=== PATIENT | male | born 1970 | race Caucasian/White ===

== ENCOUNTER 2017-09-01 17:17 | Emergency (ER) | payer MEDICARE, MEDICAID ==
[~2017-09-01] VITALS: Ht 188 cm; Wt 86.4 kg
[~2017-09-01 17:17] MED LIST: ACET-1008 PO; ASPI-611 PO; ATOR40TA PO; DEC1T PO; DOCU100C41 PO; ESCI5TAB PO; LEVE750T6 PO; LEVO300T27 PO; LORA-512 PO; MELA10TA2 PO; MULT-1179 PO; OMEP-84 PO; PROM50TA3 PO; SOMA5PEN2 SQ; TEG100T PO
[2017-09-01] MEDS ORDERED: normal saline 1000ML IV soln IVB ONE ×2 (21:20→21:30)
[2017-09-01 21:51] LABS: BASOPHILS % (AUTO) 0.3 % (0-1); EOSINOPHILS # (AUTO) 0.1 X10'3 (0-0.9); EOSINOPHILS % (AUTO) 2.5 % (0-6); HEMATOCRIT 39.2 % (42.0-52.0); HEMOGLOBIN 13.5 g/dl (14.0-17.9); LYMPHOCYTES # (AUTO) 1.8 X10'3 (1.1-4.8); LYMPHOCYTES % (AUTO) 37.5 % (21-51); MEAN CORPUSCULAR HEMOGLOBIN 29.8 PG (27.0-31.0); MEAN CORPUSCULAR HGB CONC 34.4 % (33.0-36.5); MEAN CORPUSCULAR VOLUME 86.9 FL (78-98); MEAN PLATELET VOLUME 7.9 FL (7.4-10.4); MONOCYTES # (AUTO) 0.5 X10'3 (0-0.9); MONOCYTES % (AUTO) 11.1 % (2-12); NEUTROPHILS # (AUTO) 2.3 X10'3 (1.8-7.7); NEUTROPHILS % (AUTO) 48.6 % (42-75); PLATELET COUNT 183 X10'3 (140-440); RED BLOOD COUNT 4.52 X10'6 (4.70-6.10); RED CELL DISTRIBUTION WIDTH 13.2 % (11.5-14.5); WHITE BLOOD COUNT 4.8 X10'3 (4.5-11.0)
[2017-09-01 22:16] LABS: ALANINE AMINOTRANSFERASE 45 U/L (12-78); ALBUMIN 3.9 G/DL (3.4-5.0); ALBUMIN/GLOBULIN RATIO 1.4 (1.1-1.5); ALKALINE PHOSPHATASE 179 IU/L (46-116); ANION GAP 7 (8-16); ASPARTATE AMINO TRANSFERASE 25 U/L (10-37); BILIRUBIN,TOTAL 0.4 MG/DL (0.1-1.0); BLOOD UREA NITROGEN 11 MG/DL (7-18); BUN/CREATININE RATIO 15.7 (5.4-32.0); CALCIUM 8.6 MG/DL (8.5-10.1); CHLORIDE 97 MMOL/L (99-107); GLUCOSE 84 MG/DL (70-104); MAGNESIUM 1.7 MG/DL (1.5-2.4); POTASSIUM 4.3 MMOL/L (3.5-5.1); SODIUM 134 MMOL/L (135-145); TOTAL CARBON DIOXIDE 30.2 MMOL/L (24-32); TOTAL PROTEIN 6.7 G/DL (6.4-8.2); eGFR > 90 ML/MIN
[2017-09-01 22:18] LABS: CLARITY,URINE CLEAR (Clear); GLUCOSE, URINE NEGATIVE (Neg); KETONES,URINE >=80 mg/dl (Neg); LEUKOCYTE ESTERASE ,URINE NEGATIVE (Neg); NITRITES, URINE NEGATIVE (Neg); OCCULT BLOOD,URINE NEGATIVE (Neg); PH,URINE 5.5 (4.8-8.0); PROTEIN,URINE NEGATIVE (Neg); UROBILINOGEN,URINE 0.2 E.U/dL (0.2-1.0)
[2017-09-01 22:20] LABS: COLOR,URINE DARK YELLOW (Yellow); UA COLLECTION TYPE CLN CATCH MIDSTREAM
[2017-09-02 00:50] VITALS: BP 142/73
== END 2017-09-02 00:10 | disposition home or self-care (01) ==
LOC: ER 17:18
DX: R53.1 Weakness (principal); E03.9 Hypothyroidism, unspecified; E78.00 Pure hypercholesterolemia, unspecified; I10 Essential (primary) hypertension; Z88.8 Allergy status to other drugs, medicaments and biological substances; Z79.82 Long term (current) use of aspirin
CPT/HCPCS: 36415; 80053; 81003; 83735; 84439; 84443; 85025; 99284; J7030

== ENCOUNTER 2017-09-08 19:03 | Emergency (ER) | payer MEDICARE, MEDICAID ==
[~2017-09-08] VITALS: Ht 188 cm; Wt 86.4 kg
[2017-09-08] MEDS ORDERED: normal saline 1000ml 1,000 ML IV ONE (19:44)
[2017-09-08 20:18] LABS: BASOPHILS % (AUTO) 0.6 % (0-1); EOSINOPHILS # (AUTO) 0.1 X10'3 (0-0.9); EOSINOPHILS % (AUTO) 2.7 % (0-6); HEMOGLOBIN 12.6 g/dl (14.0-17.9); MEAN CORPUSCULAR HEMOGLOBIN 30.5 PG (27.0-31.0); MEAN CORPUSCULAR HGB CONC 35.2 % (33.0-36.5); MEAN CORPUSCULAR VOLUME 86.6 FL (78-98); MONOCYTES # (AUTO) 0.4 X10'3 (0-0.9); MONOCYTES % (AUTO) 8.7 % (2-12); NEUTROPHILS # (AUTO) 1.7 X10'3 (1.8-7.7); PLATELET COUNT 209 X10'3 (140-440); RED BLOOD COUNT 4.15 X10'6 (4.70-6.10); WHITE BLOOD COUNT 4.3 X10'3 (4.5-11.0)
[2017-09-08 20:30] LABS: PARTIAL THROMBOPLASTIN TIME 29 SECONDS (22-32); PROTHROMBIN TIME 10.4 SECONDS (9.0-12.0)
[2017-09-08 20:45] LABS: ALANINE AMINOTRANSFERASE 44 U/L (12-78); ALBUMIN 3.6 G/DL (3.4-5.0); ALBUMIN/GLOBULIN RATIO 1.3 (1.1-1.5); ALKALINE PHOSPHATASE 141 IU/L (46-116); ANION GAP 3 (8-16); ASPARTATE AMINO TRANSFERASE 22 U/L (10-37); BILIRUBIN,TOTAL 0.2 MG/DL (0.1-1.0); BLOOD UREA NITROGEN 11 MG/DL (7-18); BUN/CREATININE RATIO 15.7 (5.4-32.0); CALCIUM 8.3 MG/DL (8.5-10.1); CHLORIDE 99 MMOL/L (99-107); CREATINE KINASE 165 U/L (39-308); ETHANOL < 0.010 GM/DL (0.0-0.010); GLUCOSE 103 MG/DL (70-104); MAGNESIUM 1.6 MG/DL (1.5-2.4); POTASSIUM 3.9 MMOL/L (3.5-5.1); SODIUM 133 MMOL/L (135-145); TOTAL CARBON DIOXIDE 30.7 MMOL/L (24-32); TOTAL PROTEIN 6.4 G/DL (6.4-8.2); eGFR > 90 ML/MIN
[2017-09-08] MEDS ORDERED: levetiracetam inj 1,500 MG in normal saline 100ml IV soln 85 ML IV ONE (20:58)
[2017-09-08] MEDS ORDERED: LORazepam 2 mg/ml vial IV ONE (22:30)
[2017-09-08 22:40] LABS: CLARITY,URINE Clear (Clear); COLOR,URINE Yellow (Yellow); GLUCOSE, URINE Negative (Neg); KETONES,URINE Negative (Neg); LEUKOCYTE ESTERASE ,URINE Negative (Neg); NITRITES, URINE Negative (Neg); OCCULT BLOOD,URINE Negative (Neg); PH,URINE 6.5 (4.8-8.0); PROTEIN,URINE Negative (Neg)
[2017-09-08 22:46] LABS: UA COLLECTION TYPE CLN CATCH MIDSTREAM
[2017-09-08 22:54] LABS: URINE AMPHETAMINE SCREEN NEGATIVE (Neg); URINE BARBITUATE SCREEN NEGATIVE (Neg); URINE BENZODIAZEPINES SCREEN NEGATIVE (Neg); URINE CANNABINOID SCREEN NEGATIVE (Neg); URINE COCAINE SCREEN NEGATIVE (Neg); URINE METHADONE SCREEN NEGATIVE (Neg); URINE OPIATE SCREEN NEGATIVE (Neg); URINE PHENCYCLIDINE SCREEN NEGATIVE (Neg)
[2017-09-08] MEDS ORDERED: LORA0.5T PO (22:55)
[2017-09-08 23:12] VITALS: BP 136/82
[2017-09-09] MEDS ORDERED: levetiracetam inj 1,500 MG in normal saline 100ml IV soln 85 ML IV SCH (08:00)
== END 2017-09-08 23:14 | disposition home or self-care (01) ==
LOC: ER 19:03
DX: R56.9 Unspecified convulsions (principal); I10 Essential (primary) hypertension; E78.00 Pure hypercholesterolemia, unspecified; E03.9 Hypothyroidism, unspecified; I25.10 Atherosclerotic heart disease of native coronary artery without angina pectoris; Z98.890 Other specified postprocedural states; Z79.82 Long term (current) use of aspirin
CPT/HCPCS: 36415; 70250; 71045; 74018; 80053; 80305; 80320; 81003; 82550; 83735; 83874; 85025; 85610; 85730; 96361; 96374; 96375; 99285; J1953; J2060; J7030

== ENCOUNTER 2017-09-09 11:31 | Emergency (ER) | payer MEDICARE, MEDICAID ==
[~2017-09-09] VITALS: Ht 188 cm; Wt 190.0 kg
[~2017-09-09 11:31] MED LIST changes: +LORA0.5T PO
[2017-09-09] MEDS ORDERED: normal saline 1000ML IV soln IVB ONE (11:50)
[2017-09-09] MEDS ORDERED: LORazepam 2 mg/ml vial IV ONE ×3 (11:50→17:45)
[2017-09-09 12:18] LABS: BASOPHILS % (AUTO) 0.4 % (0-1); EOSINOPHILS # (AUTO) 0.1 X10'3 (0-0.9); EOSINOPHILS % (AUTO) 2.7 % (0-6); HEMATOCRIT 35.6 % (42.0-52.0); HEMOGLOBIN 12.8 g/dl (14.0-17.9); LYMPHOCYTES # (AUTO) 1.8 X10'3 (1.1-4.8); LYMPHOCYTES % (AUTO) 44.3 % (21-51); MEAN CORPUSCULAR HGB CONC 35.9 % (33.0-36.5); MEAN CORPUSCULAR VOLUME 86.2 FL (78-98); MEAN PLATELET VOLUME 7.7 FL (7.4-10.4); MONOCYTES # (AUTO) 0.3 X10'3 (0-0.9); MONOCYTES % (AUTO) 7.9 % (2-12); NEUTROPHILS # (AUTO) 1.8 X10'3 (1.8-7.7); NEUTROPHILS % (AUTO) 44.7 % (42-75); PLATELET COUNT 210 X10'3 (140-440); RED BLOOD COUNT 4.13 X10'6 (4.70-6.10); RED CELL DISTRIBUTION WIDTH 12.6 % (11.5-14.5)
[2017-09-09 12:33] LABS: ALANINE AMINOTRANSFERASE 39 U/L (12-78); ALBUMIN 3.6 G/DL (3.4-5.0); ALBUMIN/GLOBULIN RATIO 1.3 (1.1-1.5); ALKALINE PHOSPHATASE 140 IU/L (46-116); ANION GAP 4 (8-16); ASPARTATE AMINO TRANSFERASE 22 U/L (10-37); BILIRUBIN,TOTAL 0.3 MG/DL (0.1-1.0); BLOOD UREA NITROGEN 9 MG/DL (7-18); CALCIUM 8.6 MG/DL (8.5-10.1); CHLORIDE 97 MMOL/L (99-107); CREATINE KINASE 163 U/L (39-308); GLUCOSE 99 MG/DL (70-104); POTASSIUM 4.2 MMOL/L (3.5-5.1); SODIUM 133 MMOL/L (135-145); TOTAL CARBON DIOXIDE 32.4 MMOL/L (24-32); TOTAL PROTEIN 6.3 G/DL (6.4-8.2); eGFR > 90 ML/MIN
[2017-09-09 13:36] LABS: CLARITY,URINE CLEAR (Clear); COLOR,URINE YELLOW (Yellow); GLUCOSE, URINE NEGATIVE (Neg); KETONES,URINE NEGATIVE (Neg); LEUKOCYTE ESTERASE ,URINE NEGATIVE (Neg); NITRITES, URINE NEGATIVE (Neg); OCCULT BLOOD,URINE NEGATIVE (Neg); PH,URINE 7.5 (4.8-8.0); PROTEIN,URINE NEGATIVE (Neg); UA COLLECTION TYPE STRAIGHT CATH; UROBILINOGEN,URINE 0.2 E.U/dL (0.2-1.0)
[2017-09-09] MEDS ORDERED: magnesium 2GM in 50ml NS 50 ML IV ONE (15:55)
[2017-09-09] MEDS ORDERED: normal saline 1000ML IV soln IV ONE (15:55)
[2017-09-09] MEDS ORDERED: levetiracetam 100mg/ml oral solution 5ml UD cup PO SCH (16:45)
[2017-09-09] MEDS ORDERED: carBAMazepine Ext. Release 200 MG TAB.ER.12H PO SCH (16:45)
[2017-09-09 19:42] VITALS: BP 130/72
== END 2017-09-09 19:46 | disposition short-term general hospital (02) ==
LOC: ER 11:32
DX: C71.9 Malignant neoplasm of brain, unspecified (principal); G40.909 Epilepsy, unspecified, not intractable, without status epilepticus; E78.00 Pure hypercholesterolemia, unspecified; E03.9 Hypothyroidism, unspecified; I10 Essential (primary) hypertension; Z88.8 Allergy status to other drugs, medicaments and biological substances; Z79.82 Long term (current) use of aspirin; Z79.899 Other long term (current) drug therapy
CPT/HCPCS: 36415; 80053; 81003; 82550; 83605; 85025; 87040; 93005; 96361; 96365; 96375; 96376; 99291; 99292; A4353; J2060; J3475; J7030

== ENCOUNTER 2017-12-08 11:40 | Inpatient (IN) | payer MEDICARE, MEDICAID ==
[~2017-12-08] VITALS: Ht 188 cm; Wt 85.0 kg
[~2017-12-08 11:40] MED LIST changes: -LORA0.5T PO
[2017-12-08] MEDS ORDERED: normal saline 1000ml 1,000 ML IV ONE (12:35)
[2017-12-08 12:43] LABS: BASOPHILS % (AUTO) 0.2 % (0-1); EOSINOPHILS # (AUTO) 0.1 X10'3 (0-0.9); EOSINOPHILS % (AUTO) 2.6 % (0-6); HEMATOCRIT 36.1 % (42.0-52.0); HEMOGLOBIN 12.4 g/dl (14.0-17.9); LYMPHOCYTES # (AUTO) 1.7 X10'3 (1.1-4.8); LYMPHOCYTES % (AUTO) 37.6 % (21-51); MEAN CORPUSCULAR HEMOGLOBIN 30.8 PG (27.0-31.0); MEAN CORPUSCULAR HGB CONC 34.3 % (33.0-36.5); MEAN CORPUSCULAR VOLUME 89.8 FL (78-98); MEAN PLATELET VOLUME 7.9 FL (7.4-10.4); MONOCYTES # (AUTO) 0.4 X10'3 (0-0.9); MONOCYTES % (AUTO) 9.7 % (2-12); NEUTROPHILS # (AUTO) 2.2 X10'3 (1.8-7.7); NEUTROPHILS % (AUTO) 49.9 % (42-75); PLATELET COUNT 178 X10'3 (140-440); RED BLOOD COUNT 4.02 X10'6 (4.70-6.10); RED CELL DISTRIBUTION WIDTH 13.3 % (11.5-14.5); WHITE BLOOD COUNT 4.5 X10'3 (4.5-11.0)
[2017-12-08 13:07] LABS: ALANINE AMINOTRANSFERASE 39 U/L (12-78); ALBUMIN 3.4 G/DL (3.4-5.0); ALBUMIN/GLOBULIN RATIO 1.3 (1.1-1.5); ALKALINE PHOSPHATASE 264 IU/L (46-116); ANION GAP 4 (8-16); ASPARTATE AMINO TRANSFERASE 18 U/L (10-37); BILIRUBIN,TOTAL 0.2 MG/DL (0.1-1.0); BLOOD UREA NITROGEN 11 MG/DL (7-18); BUN/CREATININE RATIO 17.7 (5.4-32.0); CALCIUM 8.9 MG/DL (8.5-10.1); CHLORIDE 106 MMOL/L (99-107); CREATININE 0.62 MG/DL (0.60-1.10); GLUCOSE 107 MG/DL (70-104); POTASSIUM 3.7 MMOL/L (3.5-5.1); SODIUM 143 MMOL/L (135-145); TOTAL CARBON DIOXIDE 33.1 MMOL/L (24-32); TOTAL PROTEIN 6.1 G/DL (6.4-8.2); eGFR > 90 ML/MIN
[2017-12-08 13:19] LABS: PHENYTOIN (DILANTIN) 39.8 UG/ML (10.0-20.0)
[2017-12-08 13:33] LABS: CLARITY,URINE CLEAR (Clear); COLOR,URINE YELLOW (Yellow); GLUCOSE, URINE NEGATIVE (Neg); KETONES,URINE NEGATIVE (Neg); LEUKOCYTE ESTERASE ,URINE NEGATIVE (Neg); NITRITES, URINE NEGATIVE (Neg); OCCULT BLOOD,URINE NEGATIVE (Neg); PROTEIN,URINE NEGATIVE (Neg); UROBILINOGEN,URINE 0.2 E.U/dL (0.2-1.0)
[2017-12-08 13:38] LABS: UA COLLECTION TYPE STRAIGHT CATH
[2017-12-08 13:43] LABS: URINE AMPHETAMINE SCREEN NEGATIVE (Neg); URINE BARBITUATE SCREEN NEGATIVE (Neg); URINE BENZODIAZEPINES SCREEN NEGATIVE (Neg); URINE CANNABINOID SCREEN NEGATIVE (Neg); URINE COCAINE SCREEN NEGATIVE (Neg); URINE METHADONE SCREEN NEGATIVE (Neg); URINE OPIATE SCREEN NEGATIVE (Neg); URINE PHENCYCLIDINE SCREEN NEGATIVE (Neg)
[2017-12-08] MEDS ORDERED: magnesium hydroxide 30ml (MOM) UD suspension PO PRN (15:30)
[2017-12-08] MEDS ORDERED: magnesium Cl slow-release 64mg tablet PO PRN (15:30)
[2017-12-08] MEDS ORDERED: ondansetron/PF 4mg/2ml inj IV PRN (15:30)
[2017-12-08] MEDS ORDERED: mag hydrox/Alum hydrox/simeth 30ml oral suspension PO PRN (15:30)
[2017-12-08] MEDS ORDERED: bisacodyl 10mg suppository rectal RC PRN (15:30)
[2017-12-08] MEDS ORDERED: potassium Cl 20 mEq SR tablet PO PRN ×2 (15:30)
[2017-12-08] MEDS ORDERED: acetaminophen 325mg tablet PO PRN (15:30)
[2017-12-08] MEDS ORDERED: magnesium 4gm in 100ml NS 100 ML IV PRN (15:30)
[2017-12-08] MEDS ORDERED: potassium Cl 40MEQ/NS 500ml 500 ML IV PRN ×2 (15:30)
[2017-12-08] MEDS ORDERED: magnesium 2GM in 50ml NS 50 ML IV PRN (15:30)
[2017-12-08] MEDS: potassium Cl 20mEq in NS 1,000 ML IV SCH (16:47)
[2017-12-08] MEDS ORDERED: MULT-933 PO (17:18)
[2017-12-08] MEDS ORDERED: TEST200V10 IM (17:18)
[2017-12-08] MEDS ORDERED: ARIP10TA15 PO (17:18)
[2017-12-08] MEDS ORDERED: B CO1TAB7 PO (17:18)
[2017-12-08] MEDS ORDERED: LEVE10002 PO (17:18)
[2017-12-08] MEDS ORDERED: DEC1T PO (17:18)
[2017-12-08] MEDS ORDERED: ASPI81TA52 PO (17:18)
[2017-12-08] MEDS ORDERED: TRAZ-143 PO (17:18)
[2017-12-08] MEDS ORDERED: PHEN100C12 PO (17:18)
[2017-12-08] MEDS ORDERED: ATOR40TA PO (17:18)
[2017-12-08] MEDS ORDERED: THIA100T70 PO (17:18)
[2017-12-08] MEDS ORDERED: DULO-31 PO (17:18)
[2017-12-08] MEDS ORDERED: POLY17PO10 PO (17:18)
[2017-12-08] MEDS ORDERED: MELA3TAB PO (17:18)
[2017-12-08] MEDS ORDERED: DOCU250C4 PO (17:18)
[2017-12-08] MEDS ORDERED: CHLO118M (17:18)
[2017-12-08] MEDS ORDERED: SOMA5PEN2 SQ (17:18)
[2017-12-08] MEDS ORDERED: LEVO175T2 PO (17:18)
[2017-12-08] MEDS: docusate sod 100mg capsule PO SCH (20:00)
[2017-12-08] MEDS: levetiracetam 250mg tablet PO SCH (20:26)
[2017-12-08] MEDS: docusate sod 250mg capsule PO SCH (20:26)
[2017-12-08] MEDS: SOMATROPIN SQ SCH (20:36)
[2017-12-08] MEDS: atorvastatin 20mg tablet PO SCH (20:36)
[2017-12-08] MEDS: aripiprazole 5mg tablet PO SCH (20:36)
[2017-12-08] MEDS: traZODone 50mg tablet PO SCH (20:36)
[2017-12-08] MEDS: Melatonin 3mg tablet PO SCH (20:36)
[2017-12-08 23:35] VITALS: BP 123/75
[2017-12-09] MEDS: potassium Cl 20mEq in NS 1,000 ML IV SCH ×3 (02:22→20:36)
[2017-12-09 06:00] VITALS: BP 138/77
[2017-12-09 06:05] LABS: ALANINE AMINOTRANSFERASE 38 U/L (12-78); ALBUMIN 3.2 G/DL (3.4-5.0); ALBUMIN/GLOBULIN RATIO 1.2 (1.1-1.5); ALKALINE PHOSPHATASE 235 IU/L (46-116); ANION GAP 3 (8-16); ASPARTATE AMINO TRANSFERASE 18 U/L (10-37); BILIRUBIN,TOTAL 0.3 MG/DL (0.1-1.0); BLOOD UREA NITROGEN 8 MG/DL (7-18); BUN/CREATININE RATIO 13.8 (5.4-32.0); CALCIUM 8.5 MG/DL (8.5-10.1); CHLORIDE 107 MMOL/L (99-107); CREATININE 0.58 MG/DL (0.60-1.10); GLUCOSE 112 MG/DL (70-104); MAGNESIUM 1.5 MG/DL (1.5-2.4); POTASSIUM 4.6 MMOL/L (3.5-5.1); SODIUM 142 MMOL/L (135-145); TOTAL CARBON DIOXIDE 31.9 MMOL/L (24-32); TOTAL PROTEIN 5.8 G/DL (6.4-8.2); eGFR > 90 ML/MIN
[2017-12-09 06:44] LABS: PHENYTOIN (DILANTIN) 32.9 UG/ML (10.0-20.0)
[2017-12-09 06:55] VITALS: BP 116/61
[2017-12-09 08:00] VITALS: BP_SYST 119; BP_SYST 121; BP_SYST 123; BP_DIAS 62; BP_DIAS 67
[2017-12-09] MEDS: docusate sod 250mg capsule PO SCH ×2 (08:00→20:36)
[2017-12-09] MEDS: K and/or MAG REPLACEMENT MC SCH (08:00)
[2017-12-09] MEDS: aspirin 81mg tablet.DR PO SCH (08:17)
[2017-12-09] MEDS: multivitamins, therapeutics tablet PO SCH (08:17)
[2017-12-09] MEDS: docusate sod 100mg capsule PO SCH ×2 (08:17→20:35)
[2017-12-09] MEDS: levetiracetam 250mg tablet PO SCH ×2 (08:17→20:35)
[2017-12-09] MEDS: duloxetine 30mg CAPSULE.DR PO SCH (08:17)
[2017-12-09 10:00] VITALS: BP 121/62
[2017-12-09] MEDS: dexamethasone 1mg tablet PO SCH (11:21)
[2017-12-09 18:29] VITALS: BP 131/70
[2017-12-09] MEDS: traZODone 50mg tablet PO SCH (20:35)
[2017-12-09] MEDS: aripiprazole 5mg tablet PO SCH (20:35)
[2017-12-09] MEDS: atorvastatin 20mg tablet PO SCH (20:35)
[2017-12-09] MEDS: Melatonin 3mg tablet PO SCH (20:35)
[2017-12-09] MEDS: SOMATROPIN SQ SCH (20:36)
[2017-12-09 22:00] VITALS: BP 126/59
[2017-12-10 05:00] VITALS: BP 149/74
[2017-12-10 06:35] LABS: ALANINE AMINOTRANSFERASE 38 U/L (12-78); ALBUMIN 3.1 G/DL (3.4-5.0); ALBUMIN/GLOBULIN RATIO 1.1 (1.1-1.5); ALKALINE PHOSPHATASE 243 IU/L (46-116); ANION GAP 5 (8-16); ASPARTATE AMINO TRANSFERASE 24 U/L (10-37); BILIRUBIN,TOTAL 0.2 MG/DL (0.1-1.0); BLOOD UREA NITROGEN 11 MG/DL (7-18); BUN/CREATININE RATIO 21.2 (5.4-32.0); CALCIUM 8.3 MG/DL (8.5-10.1); CHLORIDE 108 MMOL/L (99-107); CREATININE 0.52 MG/DL (0.60-1.10); GLUCOSE 83 MG/DL (70-104); MAGNESIUM 1.7 MG/DL (1.5-2.4); SODIUM 140 MMOL/L (135-145); TOTAL CARBON DIOXIDE 26.8 MMOL/L (24-32); TOTAL PROTEIN 5.8 G/DL (6.4-8.2); eGFR > 90 ML/MIN
[2017-12-10 06:44] LABS: POTASSIUM 4.4 MMOL/L (3.5-5.1)
[2017-12-10 06:47] LABS: PHENYTOIN (DILANTIN) 31.6 UG/ML (10.0-20.0)
[2017-12-10] MEDS: K and/or MAG REPLACEMENT MC SCH (07:44)
[2017-12-10] MEDS: docusate sod 100mg capsule PO SCH (07:46)
[2017-12-10] MEDS: aspirin 81mg tablet.DR PO SCH (07:52)
[2017-12-10] MEDS: potassium Cl 20mEq in NS 1,000 ML IV SCH ×2 (07:52→17:41)
[2017-12-10] MEDS: multivitamins, therapeutics tablet PO SCH (07:52)
[2017-12-10] MEDS: duloxetine 30mg CAPSULE.DR PO SCH (07:52)
[2017-12-10] MEDS: levetiracetam 250mg tablet PO SCH ×2 (07:52→23:11)
[2017-12-10] MEDS: dexamethasone 1mg tablet PO SCH (07:52)
[2017-12-10] MEDS: docusate sod 250mg capsule PO SCH ×2 (08:00→20:00)
[2017-12-10 18:00] VITALS: BP 132/79
[2017-12-10] MEDS ORDERED: TEST5GEL18 (18:36)
[2017-12-10 20:00] VITALS: BP_SYST 125; BP_SYST 142; BP_DIAS 72; BP_DIAS 79
[2017-12-10] MEDS ORDERED: testosterone 5gm gel packet TD SCH (21:00)
[2017-12-10] MEDS: SOMATROPIN SQ SCH (21:00)
[2017-12-10 22:00] VITALS: BP 125/79
[2017-12-10] MEDS: aripiprazole 5mg tablet PO SCH (23:02)
[2017-12-10] MEDS: traZODone 50mg tablet PO SCH (23:11)
[2017-12-10] MEDS: Melatonin 3mg tablet PO SCH (23:12)
[2017-12-10] MEDS: testosterone 5gm gel packet TD SCH (23:12)
[2017-12-10] MEDS: atorvastatin 20mg tablet PO SCH (23:12)
[2017-12-11] MEDS: potassium Cl 20mEq in NS 1,000 ML IV SCH (03:23)
[2017-12-11 05:00] VITALS: BP 138/76
[2017-12-11 07:06] LABS: ALANINE AMINOTRANSFERASE 42 U/L (12-78); ALBUMIN 3.4 G/DL (3.4-5.0); ALBUMIN/GLOBULIN RATIO 1.1 (1.1-1.5); ALKALINE PHOSPHATASE 245 IU/L (46-116); ANION GAP 5 (8-16); BILIRUBIN,TOTAL 0.4 MG/DL (0.1-1.0); BLOOD UREA NITROGEN 12 MG/DL (7-18); BUN/CREATININE RATIO 23.5 (5.4-32.0); CALCIUM 8.7 MG/DL (8.5-10.1); CHLORIDE 106 MMOL/L (99-107); CREATININE 0.51 MG/DL (0.60-1.10); GLUCOSE 81 MG/DL (70-104); MAGNESIUM 1.7 MG/DL (1.5-2.4); SODIUM 139 MMOL/L (135-145); TOTAL CARBON DIOXIDE 27.8 MMOL/L (24-32); TOTAL PROTEIN 6.4 G/DL (6.4-8.2); eGFR > 90 ML/MIN
[2017-12-11 07:08] LABS: ASPARTATE AMINO TRANSFERASE 34 U/L (10-37); POTASSIUM 5.1 MMOL/L (3.5-5.1)
[2017-12-11] MEDS ORDERED: testosterone 5gm gel packet TD SCH (08:00)
[2017-12-11] MEDS: docusate sod 250mg capsule PO SCH ×2 (08:00→19:15)
[2017-12-11] MEDS: K and/or MAG REPLACEMENT MC SCH (08:05)
[2017-12-11] MEDS: aspirin 81mg tablet.DR PO SCH (09:10)
[2017-12-11] MEDS: levetiracetam 250mg tablet PO SCH ×2 (09:10→19:16)
[2017-12-11] MEDS: multivitamins, therapeutics tablet PO SCH (09:10)
[2017-12-11] MEDS: duloxetine 30mg CAPSULE.DR PO SCH (09:10)
[2017-12-11] MEDS: dexamethasone 1mg tablet PO SCH (09:10)
[2017-12-11 10:00] VITALS: BP 125/70
[2017-12-11 13:16] LABS: CREATINE KINASE 78 U/L (39-308)
[2017-12-11 18:00] VITALS: BP 135/75
[2017-12-11] MEDS: aripiprazole 5mg tablet PO SCH (20:09)
[2017-12-11] MEDS: Melatonin 3mg tablet PO SCH (20:09)
[2017-12-11] MEDS: atorvastatin 20mg tablet PO SCH (20:09)
[2017-12-11] MEDS: traZODone 50mg tablet PO SCH (20:09)
[2017-12-11] MEDS: testosterone 5gm gel packet TD SCH (20:09)
[2017-12-11] MEDS: SOMATROPIN SQ SCH (20:10)
[2017-12-11 22:00] VITALS: BP_SYST 124; BP_SYST 133; BP_SYST 137; BP_DIAS 76
[2017-12-12 05:00] VITALS: BP 110/74
[2017-12-12 07:13] LABS: ALANINE AMINOTRANSFERASE 41 U/L (12-78); ALBUMIN 3.5 G/DL (3.4-5.0); ALBUMIN/GLOBULIN RATIO 1.2 (1.1-1.5); ALKALINE PHOSPHATASE 254 IU/L (46-116); ANION GAP 7 (8-16); ASPARTATE AMINO TRANSFERASE 21 U/L (10-37); BILIRUBIN,TOTAL 0.3 MG/DL (0.1-1.0); BLOOD UREA NITROGEN 13 MG/DL (7-18); BUN/CREATININE RATIO 25.5 (5.4-32.0); CALCIUM 8.8 MG/DL (8.5-10.1); CHLORIDE 104 MMOL/L (99-107); CREATININE 0.51 MG/DL (0.60-1.10); GLUCOSE 82 MG/DL (70-104); MAGNESIUM 1.6 MG/DL (1.5-2.4); PHENYTOIN (DILANTIN) 23.3 UG/ML (10.0-20.0); POTASSIUM 3.9 MMOL/L (3.5-5.1); SODIUM 140 MMOL/L (135-145); TOTAL CARBON DIOXIDE 28.9 MMOL/L (24-32); TOTAL PROTEIN 6.4 G/DL (6.4-8.2); eGFR > 90 ML/MIN
[2017-12-12] MEDS: K and/or MAG REPLACEMENT MC SCH (08:59)
[2017-12-12] MEDS: duloxetine 30mg CAPSULE.DR PO SCH (09:04)
[2017-12-12] MEDS: dexamethasone 1mg tablet PO SCH (09:05)
[2017-12-12] MEDS: multivitamins, therapeutics tablet PO SCH (09:05)
[2017-12-12] MEDS: aspirin 81mg tablet.DR PO SCH (09:05)
[2017-12-12] MEDS: levetiracetam 250mg tablet PO SCH ×2 (09:05→20:03)
[2017-12-12] MEDS: docusate sod 250mg capsule PO SCH ×2 (09:05→20:03)
[2017-12-12 10:00] VITALS: BP 121/62
[2017-12-12 18:00] VITALS: BP 120/68
[2017-12-12] MEDS: atorvastatin 20mg tablet PO SCH (20:03)
[2017-12-12] MEDS: aripiprazole 5mg tablet PO SCH (20:03)
[2017-12-12] MEDS: SOMATROPIN SQ SCH (20:03)
[2017-12-12] MEDS: Melatonin 3mg tablet PO SCH (20:04)
[2017-12-12] MEDS: testosterone 5gm gel packet TD SCH (20:04)
[2017-12-12 21:56] LABS: CLARITY,URINE Clear (Clear); COLOR,URINE Yellow (Yellow); GLUCOSE, URINE Negative (Neg); KETONES,URINE Negative (Neg); LEUKOCYTE ESTERASE ,URINE Negative (Neg); NITRITES, URINE Negative (Neg); OCCULT BLOOD,URINE Moderate (Neg); PROTEIN,URINE Negative (Neg)
[2017-12-12 22:00] VITALS: BP 118/70
[2017-12-12 22:07] LABS: BACTERIA,URINE FEW /HPF (Neg); RBC,URINE 20-50 /HPF (0-2); SQUAMOUS EPITHELIAL CELL,UR FEW /LPF (FEW); UA COLLECTION TYPE CLN CATCH MIDSTREAM; WBC,URINE NONE SEEN /HPF (0-4)
[2017-12-13 06:09] LABS: BASOPHILS % (AUTO) 0.4 % (0-1); EOSINOPHILS # (AUTO) 0.2 X10'3 (0-0.9); EOSINOPHILS % (AUTO) 2.5 % (0-6); HEMATOCRIT 40.6 % (42.0-52.0); HEMOGLOBIN 13.9 g/dl (14.0-17.9); LYMPHOCYTES # (AUTO) 1.9 X10'3 (1.1-4.8); LYMPHOCYTES % (AUTO) 25.3 % (21-51); MEAN CORPUSCULAR HEMOGLOBIN 30.2 PG (27.0-31.0); MEAN CORPUSCULAR HGB CONC 34.2 % (33.0-36.5); MEAN CORPUSCULAR VOLUME 88.3 FL (78-98); MEAN PLATELET VOLUME 7.1 FL (7.4-10.4); MONOCYTES # (AUTO) 0.5 X10'3 (0-0.9); MONOCYTES % (AUTO) 7.3 % (2-12); NEUTROPHILS # (AUTO) 4.8 X10'3 (1.8-7.7); NEUTROPHILS % (AUTO) 64.5 % (42-75); PLATELET COUNT 180 X10'3 (140-440); RED CELL DISTRIBUTION WIDTH 12.6 % (11.5-14.5); WHITE BLOOD COUNT 7.4 X10'3 (4.5-11.0)
[2017-12-13 06:46] LABS: ALANINE AMINOTRANSFERASE 43 U/L (12-78); ALBUMIN 3.5 G/DL (3.4-5.0); ALBUMIN/GLOBULIN RATIO 1.2 (1.1-1.5); ALKALINE PHOSPHATASE 274 IU/L (46-116); ANION GAP 8 (8-16); ASPARTATE AMINO TRANSFERASE 21 U/L (10-37); BILIRUBIN,TOTAL 0.3 MG/DL (0.1-1.0); BLOOD UREA NITROGEN 13 MG/DL (7-18); BUN/CREATININE RATIO 24.5 (5.4-32.0); CALCIUM 8.9 MG/DL (8.5-10.1); CHLORIDE 103 MMOL/L (99-107); CREATININE 0.53 MG/DL (0.60-1.10); GLUCOSE 89 MG/DL (70-104); MAGNESIUM 1.5 MG/DL (1.5-2.4); PHENYTOIN (DILANTIN) 18.2 UG/ML (10.0-20.0); POTASSIUM 3.8 MMOL/L (3.5-5.1); SODIUM 140 MMOL/L (135-145); TOTAL CARBON DIOXIDE 29.5 MMOL/L (24-32); TOTAL PROTEIN 6.5 G/DL (6.4-8.2); eGFR > 90 ML/MIN
[2017-12-13 07:11] VITALS: BP 129/74
[2017-12-13] MEDS: aspirin 81mg tablet.DR PO SCH (07:45)
[2017-12-13] MEDS: levetiracetam 250mg tablet PO SCH ×2 (07:45→20:40)
[2017-12-13] MEDS: docusate sod 250mg capsule PO SCH ×2 (07:45→20:41)
[2017-12-13] MEDS: dexamethasone 1mg tablet PO SCH (07:45)
[2017-12-13] MEDS: multivitamins, therapeutics tablet PO SCH (07:45)
[2017-12-13] MEDS: duloxetine 30mg CAPSULE.DR PO SCH (07:45)
[2017-12-13] MEDS: K and/or MAG REPLACEMENT MC SCH (08:00)
[2017-12-13 11:33] VITALS: BP 91/50
[2017-12-13 18:00] VITALS: BP 127/65
[2017-12-13] MEDS: aripiprazole 5mg tablet PO SCH (20:41)
[2017-12-13] MEDS: Melatonin 3mg tablet PO SCH (20:42)
[2017-12-13] MEDS: atorvastatin 20mg tablet PO SCH (20:42)
[2017-12-13] MEDS: SOMATROPIN SQ SCH (20:43)
[2017-12-13] MEDS: testosterone 5gm gel packet TD SCH (20:43)
[2017-12-13] MEDS ORDERED: phenytoin sod ER 100mg capsule PO SCH (21:00)
[2017-12-13] MEDS ORDERED: PHENYTOIN 30 MG PO SCH (21:00)
[2017-12-13 22:00] VITALS: BP 111/58
[2017-12-14 05:00] VITALS: BP 142/84
[2017-12-14 06:35] LABS: BASOPHILS % (AUTO) 0.3 % (0-1); EOSINOPHILS # (AUTO) 0.2 X10'3 (0-0.9); EOSINOPHILS % (AUTO) 2.7 % (0-6); HEMATOCRIT 41.8 % (42.0-52.0); HEMOGLOBIN 14.3 g/dl (14.0-17.9); LYMPHOCYTES # (AUTO) 1.9 X10'3 (1.1-4.8); LYMPHOCYTES % (AUTO) 30.5 % (21-51); MEAN CORPUSCULAR HEMOGLOBIN 30.4 PG (27.0-31.0); MEAN CORPUSCULAR HGB CONC 34.1 % (33.0-36.5); MEAN CORPUSCULAR VOLUME 89.1 FL (78-98); MEAN PLATELET VOLUME 7.8 FL (7.4-10.4); MONOCYTES # (AUTO) 0.7 X10'3 (0-0.9); MONOCYTES % (AUTO) 10.7 % (2-12); NEUTROPHILS # (AUTO) 3.5 X10'3 (1.8-7.7); NEUTROPHILS % (AUTO) 55.8 % (42-75); PLATELET COUNT 170 X10'3 (140-440); RED BLOOD COUNT 4.69 X10'6 (4.70-6.10); RED CELL DISTRIBUTION WIDTH 13.1 % (11.5-14.5); WHITE BLOOD COUNT 6.2 X10'3 (4.5-11.0)
[2017-12-14 06:56] LABS: MAGNESIUM 1.6 MG/DL (1.5-2.4); PHENYTOIN (DILANTIN) 20.5 UG/ML (10.0-20.0)
[2017-12-14] MEDS: K and/or MAG REPLACEMENT MC SCH (08:00)
[2017-12-14] MEDS: multivitamins, therapeutics tablet PO SCH (08:14)
[2017-12-14] MEDS: duloxetine 30mg CAPSULE.DR PO SCH (08:14)
[2017-12-14] MEDS: docusate sod 250mg capsule PO SCH ×2 (08:14→20:08)
[2017-12-14] MEDS: dexamethasone 1mg tablet PO SCH (08:14)
[2017-12-14] MEDS: aspirin 81mg tablet.DR PO SCH (08:14)
[2017-12-14] MEDS: levetiracetam 250mg tablet PO SCH ×2 (08:14→20:08)
[2017-12-14 10:00] VITALS: BP 116/72
[2017-12-14 18:30] VITALS: BP 128/71
[2017-12-14] MEDS: atorvastatin 20mg tablet PO SCH (20:08)
[2017-12-14] MEDS: testosterone 5gm gel packet TD SCH (20:08)
[2017-12-14] MEDS: Melatonin 3mg tablet PO SCH (20:08)
[2017-12-14] MEDS: aripiprazole 5mg tablet PO SCH (20:09)
[2017-12-14] MEDS: SOMATROPIN SQ SCH (20:10)
[2017-12-14 22:00] VITALS: BP_SYST 114; BP_SYST 129; BP_DIAS 69; BP_DIAS 74
[2017-12-15 05:55] LABS: BASOPHILS % (AUTO) 0.2 % (0-1); EOSINOPHILS # (AUTO) 0.2 X10'3 (0-0.9); EOSINOPHILS % (AUTO) 2.8 % (0-6); HEMATOCRIT 39.2 % (42.0-52.0); HEMOGLOBIN 13.4 g/dl (14.0-17.9); LYMPHOCYTES # (AUTO) 1.7 X10'3 (1.1-4.8); LYMPHOCYTES % (AUTO) 21.7 % (21-51); MEAN CORPUSCULAR HEMOGLOBIN 30.4 PG (27.0-31.0); MEAN CORPUSCULAR HGB CONC 34.1 % (33.0-36.5); MEAN CORPUSCULAR VOLUME 89.2 FL (78-98); MEAN PLATELET VOLUME 8.2 FL (7.4-10.4); MONOCYTES # (AUTO) 0.5 X10'3 (0-0.9); MONOCYTES % (AUTO) 6.9 % (2-12); NEUTROPHILS # (AUTO) 5.3 X10'3 (1.8-7.7); NEUTROPHILS % (AUTO) 68.4 % (42-75); PLATELET COUNT 166 X10'3 (140-440); WHITE BLOOD COUNT 7.7 X10'3 (4.5-11.0)
[2017-12-15 06:00] VITALS: BP 100/67
[2017-12-15 06:38] LABS: ALANINE AMINOTRANSFERASE 43 U/L (12-78); ALBUMIN 3.4 G/DL (3.4-5.0); ALBUMIN/GLOBULIN RATIO 1.1 (1.1-1.5); ALKALINE PHOSPHATASE 301 IU/L (46-116); ANION GAP 7 (8-16); ASPARTATE AMINO TRANSFERASE 20 U/L (10-37); BILIRUBIN,TOTAL 0.3 MG/DL (0.1-1.0); BLOOD UREA NITROGEN 15 MG/DL (7-18); BUN/CREATININE RATIO 24.2 (5.4-32.0); CALCIUM 8.7 MG/DL (8.5-10.1); CHLORIDE 103 MMOL/L (99-107); CREATININE 0.62 MG/DL (0.60-1.10); GLUCOSE 94 MG/DL (70-104); MAGNESIUM 1.5 MG/DL (1.5-2.4); PHENYTOIN (DILANTIN) 15.1 UG/ML (10.0-20.0); POTASSIUM 3.6 MMOL/L (3.5-5.1); SODIUM 141 MMOL/L (135-145); TOTAL CARBON DIOXIDE 31.5 MMOL/L (24-32); TOTAL PROTEIN 6.5 G/DL (6.4-8.2); eGFR > 90 ML/MIN
[2017-12-15] MEDS: K and/or MAG REPLACEMENT MC SCH (08:00)
[2017-12-15] MEDS: docusate sod 250mg capsule PO SCH ×2 (09:34→20:34)
[2017-12-15] MEDS: duloxetine 30mg CAPSULE.DR PO SCH (09:35)
[2017-12-15] MEDS: multivitamins, therapeutics tablet PO SCH (09:35)
[2017-12-15] MEDS: dexamethasone 1mg tablet PO SCH (09:35)
[2017-12-15] MEDS: levetiracetam 250mg tablet PO SCH ×2 (09:35→20:34)
[2017-12-15] MEDS: aspirin 81mg tablet.DR PO SCH (09:35)
[2017-12-15 10:00] VITALS: BP 102/61
[2017-12-15 17:00] VITALS: BP 116/69
[2017-12-15] MEDS: SOMATROPIN SQ SCH (20:28)
[2017-12-15] MEDS: testosterone 5gm gel packet TD SCH (20:31)
[2017-12-15] MEDS: PHENYTOIN 30 MG PO SCH (20:33)
[2017-12-15] MEDS: Melatonin 3mg tablet PO SCH (20:34)
[2017-12-15] MEDS: phenytoin sod ER 100mg capsule PO SCH (20:34)
[2017-12-15] MEDS: atorvastatin 20mg tablet PO SCH (20:34)
[2017-12-15] MEDS: aripiprazole 5mg tablet PO SCH (20:36)
[2017-12-15 22:44] VITALS: BP_SYST 114; BP_SYST 119; BP_DIAS 63; BP_DIAS 69
[2017-12-16 06:00] VITALS: BP 121/74
[2017-12-16 06:09] LABS: BASOPHILS % (AUTO) 0.3 % (0-1); EOSINOPHILS # (AUTO) 0.2 X10'3 (0-0.9); EOSINOPHILS % (AUTO) 3.1 % (0-6); HEMATOCRIT 38.8 % (42.0-52.0); HEMOGLOBIN 13.3 g/dl (14.0-17.9); LYMPHOCYTES # (AUTO) 1.9 X10'3 (1.1-4.8); LYMPHOCYTES % (AUTO) 34.6 % (21-51); MEAN CORPUSCULAR HEMOGLOBIN 30.7 PG (27.0-31.0); MEAN CORPUSCULAR HGB CONC 34.3 % (33.0-36.5); MEAN CORPUSCULAR VOLUME 89.6 FL (78-98); MEAN PLATELET VOLUME 8.3 FL (7.4-10.4); MONOCYTES # (AUTO) 0.5 X10'3 (0-0.9); NEUTROPHILS # (AUTO) 2.9 X10'3 (1.8-7.7); PLATELET COUNT 175 X10'3 (140-440); RED BLOOD COUNT 4.33 X10'6 (4.70-6.10); RED CELL DISTRIBUTION WIDTH 13.3 % (11.5-14.5); WHITE BLOOD COUNT 5.6 X10'3 (4.5-11.0)
[2017-12-16] MEDS: K and/or MAG REPLACEMENT MC SCH (08:00)
[2017-12-16] MEDS: dexamethasone 1mg tablet PO SCH (09:12)
[2017-12-16] MEDS: aspirin 81mg tablet.DR PO SCH (09:12)
[2017-12-16] MEDS: duloxetine 30mg CAPSULE.DR PO SCH (09:12)
[2017-12-16] MEDS: docusate sod 250mg capsule PO SCH ×2 (09:12→20:29)
[2017-12-16] MEDS: multivitamins, therapeutics tablet PO SCH (09:13)
[2017-12-16] MEDS: levetiracetam 250mg tablet PO SCH ×2 (09:13→20:29)
[2017-12-16 10:00] VITALS: BP 118/67
[2017-12-16 17:00] VITALS: BP 119/71
[2017-12-16] MEDS: aripiprazole 5mg tablet PO SCH (20:29)
[2017-12-16] MEDS: phenytoin sod ER 100mg capsule PO SCH (20:29)
[2017-12-16] MEDS: atorvastatin 20mg tablet PO SCH (20:30)
[2017-12-16] MEDS: PHENYTOIN 30 MG PO SCH (20:30)
[2017-12-16] MEDS: Melatonin 3mg tablet PO SCH (20:31)
[2017-12-16] MEDS: testosterone 5gm gel packet TD SCH (20:31)
[2017-12-16] MEDS: SOMATROPIN SQ SCH (20:32)
[2017-12-16 22:00] VITALS: BP 121/76
[2017-12-17 06:00] VITALS: BP 98/58
[2017-12-17 07:25] LABS: PHENYTOIN (DILANTIN) 15.4 UG/ML (10.0-20.0)
[2017-12-17] MEDS: K and/or MAG REPLACEMENT MC SCH (07:31)
[2017-12-17] MEDS: docusate sod 250mg capsule PO SCH ×2 (07:32→21:02)
[2017-12-17] MEDS: aspirin 81mg tablet.DR PO SCH (07:33)
[2017-12-17] MEDS: levetiracetam 250mg tablet PO SCH ×2 (07:33→21:02)
[2017-12-17] MEDS: dexamethasone 1mg tablet PO SCH (07:33)
[2017-12-17] MEDS: multivitamins, therapeutics tablet PO SCH (07:33)
[2017-12-17] MEDS: duloxetine 30mg CAPSULE.DR PO SCH (07:33)
[2017-12-17 10:09] VITALS: BP 106/67
[2017-12-17 17:00] VITALS: BP 113/45
[2017-12-17] MEDS: phenytoin sod ER 100mg capsule PO SCH (21:01)
[2017-12-17] MEDS: Melatonin 3mg tablet PO SCH (21:02)
[2017-12-17] MEDS: PHENYTOIN 30 MG PO SCH (21:02)
[2017-12-17] MEDS: atorvastatin 20mg tablet PO SCH (21:02)
[2017-12-17] MEDS: testosterone 5gm gel packet TD SCH (21:03)
[2017-12-17] MEDS: aripiprazole 5mg tablet PO SCH (21:03)
[2017-12-17] MEDS: SOMATROPIN SQ SCH (21:04)
[2017-12-17 22:00] VITALS: BP 117/73
[2017-12-18 06:00] VITALS: BP 112/67
[2017-12-18] MEDS: K and/or MAG REPLACEMENT MC SCH (08:00)
[2017-12-18] MEDS: dexamethasone 1mg tablet PO SCH (08:02)
[2017-12-18] MEDS: levetiracetam 250mg tablet PO SCH (08:03)
[2017-12-18] MEDS: aspirin 81mg tablet.DR PO SCH (08:03)
[2017-12-18] MEDS: multivitamins, therapeutics tablet PO SCH (08:03)
[2017-12-18] MEDS: duloxetine 30mg CAPSULE.DR PO SCH (08:03)
[2017-12-18] MEDS: docusate sod 250mg capsule PO SCH (08:03)
[2017-12-18 10:08] VITALS: BP 116/56
== END 2017-12-18 16:00 | DRG 101 ==
LOC: ER 11:41 → ED HOLD 14:45 → EDBEDREQ 15:38 → ORTHO 4S 23:35
PROVIDERS: ADMIT Internal Medicine; ATTEND Internal Medicine
PROC: 4A10X4Z Monitoring of Central Nervous Electrical Activity, External Approach (ICD-10-PCS; principal; 2017-12-13)
DX: G40.909 Epilepsy, unspecified, not intractable, without status epilepticus (principal); R53.1 Weakness; T42.0X5A Adverse effect of hydantoin derivatives, initial encounter; D49.1 Neoplasm of unspecified behavior of respiratory system; E03.9 Hypothyroidism, unspecified; E78.00 Pure hypercholesterolemia, unspecified; G47.30 Sleep apnea, unspecified; H54.61 Unqualified visual loss, right eye, normal vision left eye; I10 Essential (primary) hypertension; Z95.810 Presence of automatic (implantable) cardiac defibrillator; Z90.49 Acquired absence of other specified parts of digestive tract; Z88.8 Allergy status to other drugs, medicaments and biological substances; Z79.899 Other long term (current) drug therapy; Z79.82 Long term (current) use of aspirin; Z92.3 Personal history of irradiation; Z86.011 Personal history of benign neoplasm of the brain; Z86.74 Personal history of sudden cardiac arrest; Z85.841 Personal history of malignant neoplasm of brain; Z82.49 Family history of ischemic heart disease and other diseases of the circulatory system; Y92.89 Other specified places as the place of occurrence of the external cause
CPT/HCPCS: 36415; 70450; 71045; 80053; 80185; 80305; 81001; 81003; 82550; 82948; 83735; 84439; 84443; 84479; 85025; 87070; 92616; 95951; 96360; 97110; 97112; 97116; 97161; 97530; 97535; 99285; A4353; A6213; J7030; J8540

== ENCOUNTER 2018-04-25 20:22 | Emergency (ER) | payer MEDICARE, MEDICAID ==
[~2018-04-25] VITALS: Ht 200.7 cm; Wt 200.0 kg
[~2018-04-25 20:22] MED LIST changes: -ACET-1008 PO; +ARIP10TA15 PO; -ASPI-611 PO; +ASPI81TA52 PO; +B CO1TAB7 PO; +CHLO118M; -DOCU100C41 PO; +DOCU250C4 PO; +DULO-31 PO; -ESCI5TAB PO; +LEVE10002 PO; -LEVE750T6 PO; +LEVO175T2 PO; -LEVO300T27 PO; -LORA-512 PO; -MELA10TA2 PO; +MELA3TAB PO; -MULT-1179 PO; +MULT-933 PO; -OMEP-84 PO; +PHEN100C12 PO; +POLY17PO10 PO; -PROM50TA3 PO; -TEG100T PO; +TEST200V10 IM; +TEST5GEL18; +THIA100T70 PO; +TRAZ-218 PO
[2018-04-25] MEDS ORDERED: normal saline 1000ml 1,000 ML IV ONE (20:37)
[2018-04-25] MEDS ORDERED: ondansetron/PF 4mg/2ml inj IV ONE (20:40)
[2018-04-25 20:53] LABS: BASOPHILS % (AUTO) 0.6 % (0-1); EOSINOPHILS # (AUTO) 0.2 X10'3 (0-0.9); HEMATOCRIT 32.9 % (42.0-52.0); HEMOGLOBIN 11.3 g/dl (14.0-17.9); LYMPHOCYTES # (AUTO) 1.5 X10'3 (1.1-4.8); LYMPHOCYTES % (AUTO) 35.9 % (21-51); MEAN CORPUSCULAR HEMOGLOBIN 29.9 PG (27.0-31.0); MEAN CORPUSCULAR HGB CONC 34.3 % (33.0-36.5); MEAN CORPUSCULAR VOLUME 87.1 FL (78-98); MEAN PLATELET VOLUME 5.9 FL (7.4-10.4); MONOCYTES # (AUTO) 0.4 X10'3 (0-0.9); MONOCYTES % (AUTO) 8.5 % (2-12); NEUTROPHILS # (AUTO) 2.2 X10'3 (1.8-7.7); PLATELET COUNT 423 X10'3 (140-440); RED BLOOD COUNT 3.77 X10'6 (4.70-6.10); RED CELL DISTRIBUTION WIDTH 14.8 % (11.5-14.5); WHITE BLOOD COUNT 4.3 X10'3 (4.5-11.0)
[2018-04-25 21:08] LABS: ALANINE AMINOTRANSFERASE 55 U/L (12-78); ALBUMIN 2.9 G/DL (3.4-5.0); ALBUMIN/GLOBULIN RATIO 0.9 (1.1-1.5); ALKALINE PHOSPHATASE 309 IU/L (46-116); ANION GAP 0 (8-16); ASPARTATE AMINO TRANSFERASE 53 U/L (10-37); BILIRUBIN,TOTAL 0.2 MG/DL (0.1-1.0); BLOOD UREA NITROGEN 10 MG/DL (7-18); BUN/CREATININE RATIO 18.5 (5.4-32.0); CALCIUM 8.3 MG/DL (8.5-10.1); CHLORIDE 99 MMOL/L (99-107); CREATININE 0.54 MG/DL (0.60-1.10); GLUCOSE 91 MG/DL (70-104); POTASSIUM 4.5 MMOL/L (3.5-5.1); SODIUM 132 MMOL/L (135-145); TOTAL CARBON DIOXIDE 33.3 MMOL/L (24-32); TOTAL PROTEIN 6.1 G/DL (6.4-8.2); eGFR > 90 ML/MIN
[2018-04-25 21:17] LABS: MAGNESIUM 1.8 MG/DL (1.5-2.4); PHENYTOIN (DILANTIN) 12.5 UG/ML (10.0-20.0)
[2018-04-25 21:47] LABS: CLARITY,URINE CLEAR (Clear); COLOR,URINE YELLOW (Yellow); GLUCOSE, URINE NEGATIVE (Neg); KETONES,URINE NEGATIVE (Neg); LEUKOCYTE ESTERASE ,URINE NEGATIVE (Neg); NITRITES, URINE NEGATIVE (Neg); OCCULT BLOOD,URINE NEGATIVE (Neg); PROTEIN,URINE NEGATIVE (Neg); UROBILINOGEN,URINE 0.2 E.U/dL (0.2-1.0)
[2018-04-25 21:50] LABS: UA COLLECTION TYPE STRAIGHT CATH
[2018-04-25 22:23] VITALS: BP 140/81
== END 2018-04-25 23:05 | disposition home or self-care (01) ==
LOC: ER 20:24
DX: K29.00 Acute gastritis without bleeding (principal); D64.9 Anemia, unspecified; E03.9 Hypothyroidism, unspecified; E78.00 Pure hypercholesterolemia, unspecified; I10 Essential (primary) hypertension; Z88.8 Allergy status to other drugs, medicaments and biological substances; Z79.82 Long term (current) use of aspirin; Z86.69 Personal history of other diseases of the nervous system and sense organs
CPT/HCPCS: 36415; 80053; 80185; 81003; 83735; 84439; 84443; 85025; 93005; 96361; 96374; 99285; A4353; J2405; J7030